=== PATIENT | female | born 1930 | race Caucasian/White ===

== ENCOUNTER 2016-04-24 08:20 | Emergency (ER) | payer MEDICARE ==
[~2016-04-24] VITALS: Ht 165.1 cm; Wt 73.0 kg
[2016-04-24 08:29] VITALS: BP 148/77; PULSE 69; RESP 16; TEMP 98.1; O2SAT 97
[2016-04-24] MEDS ORDERED: ATOR40TA16 PO (08:48)
[2016-04-24] MEDS ORDERED: WARF-60 PO (08:48)
[2016-04-24] MEDS ORDERED: LOSA100T PO (08:48)
[2016-04-24] MEDS ORDERED: OMEP40CA2 PO (08:48)
[2016-04-24] MEDS ORDERED: MULT400T PO (08:48)
[2016-04-24] MEDS ORDERED: DICL1GEL TOPICAL (08:48)
[2016-04-24] MEDS ORDERED: AMLO2.5T PO (08:48)
--- NOTE | 2016-04-24 09:00 | PD ---
HPI Chief Complaint: Nosebleed Time Seen by Provider: 08:39 Travel History International Travel<30 days: No Contact w/Intl Traveler<30days: No Traveled to known affect area: No History of Present Illness HPI This patient complains of nosebleed. She had spontaneous nosebleed around 4 AM this morning. She held pressure for a while when it stopped. No injury to the nose. She had recently held her Coumadin for 4 days due to a dental extraction and restarted it 2 days ago. No other bleeding complaints. Symptoms severity was moderate but now is resolved. Direct pressure was alleviating factor. Duration 20 minutes PFSH Past Medical History Hx Anticoagulant Therapy: Yes (COUMADIN) Arthritis: Yes Heart Rhythm Problems: Yes High Cholesterol: Yes Hypertension: Yes Influenza Vaccination: Yes ?: Not Social History Alcohol Use: No Tobacco Use: No Substance Use: No Allergies-Medications (Allergen,Severity, Reaction): Coded Allergies: No Known Allergies (Unverified , 04/24/16) Reported Meds & Prescriptions Reported Meds & Active Scripts Active Reported Warfarin 6 Mg Tab 6 Mg PO DAILY Voltaren Topical (Diclofenac Topical) 1% Gel 1 Applic TOPICAL QID Omeprazole 40 Mg Cap 40 Mg PO DAILY Losartan (Losartan Potassium) 100 Mg Tab 100 Mg PO DAILY Multaq (Dronedarone) 400 Mg Tab 400 Mg PO BID Atorvastatin (Atorvastatin Calcium) 40 Mg Tab 40 Mg PO HS Amlodipine (Amlodipine Besylate) 2.5 Mg Tab 2.5 Mg PO DAILY Review of Systems General / Constitutional: No: Fever Eyes: No: Visual changes HENT: Positive: Nosebleed, No: Headaches Cardiovascular: No: Chest Pain or Discomfort Respiratory: No: Shortness of Breath Gastrointestinal: No: Abdominal Pain Genitourinary: No: Dysuria Musculoskeletal: No: Pain Skin: No Rash Neurologic: No: Weakness Psychiatric: No: Depression Endocrine: No: Polydipsia Hematologic/Lymphatic: No: Easy Bruising Physical Exam Narrative GENERAL: Well-nourished, well-developed patient in no apparent distress. SKIN: Warm and dry. HEAD: Atraumatic. Normocephalic. EYES: Pupils equal and round. No scleral icterus. No injection or drainage. ENT: No nasal bleeding or discharge. Mucous membranes pink and moist. No obvious bleeding sites on either nostril. She removed her partial plate and I examined the extraction site. No Bleeding from that. NECK: Trachea midline. No JVD. CARDIOVASCULAR: Regular rate and rhythm. No murmur appreciated. RESPIRATORY: No accessory muscle use. Clear to auscultation. Breath sounds equal bilaterally. GASTROINTESTINAL: Abdomen soft, non-tender, nondistended. Hepatic and splenic margins not palpable. MUSCULOSKELETAL: No obvious deformities. No clubbing. No cyanosis. No edema. NEUROLOGICAL: Awake and alert. No obvious cranial nerve deficits. Motor grossly within normal limits. Normal speech. PSYCHIATRIC: Appropriate mood and affect; insight and judgment normal. Data Data Last Documented VS Vital Signs Date Time Temp Pulse Resp B/P Pulse Ox O2 Delivery O2 Flow Rate FiO2 04/24/16 08:40 69 16 04/24/16 08:29 98.1 148/77 97 Orders Prothrombin Time / Inr (Pt) (04/24/16 08:48) Labs Laboratory Tests Test 04/24/16 08:55 Prothrombin Time 12.4 SEC Prothromb Time International 1.1 RATIO Ratio MDM Medical Decision Making Medical Screen Exam Complete: Yes Emergency Medical Condition: Yes Medical Record Reviewed: Yes Differential Diagnosis Supratherapeutic INR, nasal trauma, mucosal lesion Narrative Course I have reviewed the patient's electronic medical record. Patient had nosebleed but is no longer bleeding INR on Coumadin is 1.1 I don't see any active bleeding and it is certainly not a supratherapeutic INR Patient is upset that I cannot tell her why she had a nosebleed. I spent a long time explaining things to her but she still doesn't seem to get that I can' t with certainty tell her why her nose bled for no reason at all. She continually asking the same questions over and over again despite my explanations. She is stable for outpatient follow-up. She's had no bleeding at all while here. I've advised her what to do with her nose rebleeds. If she cannot get her bleeding stopped she should come back and we will reassess. She has no further bleeding by Tuesday she should follow-up with ear nose throat physician Diagnosis Primary Impression: Epistaxis Additional Instructions: Follow-up with primary care and ENT Med/Other Pt SpecificInfo: Other Disposition: 01 DISCHARGE HOME Condition: Stable Franklin Briones MD Apr 24, 2016 09:00
[2016-04-24 09:18] LABS: INTERNATIONAL NORMALIZED RATIO 1.1 RATIO; PROTHROMBIN TIME - PATIENT 12.4 SEC (9.8-11.6)
== END 2016-04-24 09:44 | disposition home or self-care (01) ==
LOC: PHED 08:20
DX: R04.0 Epistaxis (principal); E78.00 Pure hypercholesterolemia, unspecified; I10 Essential (primary) hypertension; Z79.01 Long term (current) use of anticoagulants
CPT/HCPCS: 85610; 99283